=== PATIENT | female | born 1990 ===

== ENCOUNTER 2018-09-09 11:23 | Emergency (ER) | payer OTHER ==
[~2018-09-09] VITALS: Ht 162.6 cm; Wt 114.3 kg
[2018-09-09] MEDS ORDERED: FORTAMET500 MG (11:39)
[2018-09-09] MEDS ORDERED: PEPCID AC20 MG PO (18:05)
[2018-09-09] MEDS ORDERED: PREVACID15 MG PO (18:05)
== END 2018-09-09 18:26 ==
LOC: ER 11:23
DX: R12 Heartburn (principal); R10.84 Generalized abdominal pain